=== PATIENT | female | born 1975 | race Hispanic/Latino ===

== ENCOUNTER 2017-04-20 21:48 | Emergency (ER) | payer MEDICAID ==
[2017-04-20 22:07] VITALS: BP 131/85
[2017-04-20 23:01] LABS: Basophils % (Auto) 0.9 % (0.0-1.8); Hematocrit 41.7 % (30.3-42.9); Hemoglobin 13.7 gm/dl (10.1-14.3); Mean Corpuscular HGB Conc 33 % (30-34); Mean Corpuscular Hemoglobin 30 pg (28-32); Mean Corpuscular Volume 90 fl (79-97); Platelet Count 264 K/mm3 (140-440); Red Blood Count 4.64 M/mm3 (3.65-5.03); Red Cell Distribution Width 13.2 % (13.2-15.2); White Blood Count 11.3 K/mm3 (4.5-11.0)
[2017-04-20 23:12] LABS: INR 1.04 (0.87-1.13)
[2017-04-20 23:13] LABS: Anion Gap 22 mmol/L; Blood Urea Nitrogen 26 mg/dL (7-17); Calcium 9.4 mg/dL (8.4-10.2); Carbon Dioxide 25 mmol/L (22-30); Glucose 183 mg/dL (65-100); Partial Thromboplastin Time 27.1 Sec. (24.2-36.6); Potassium 3.6 mmol/L (3.6-5.0); Sodium 137 mmol/L (137-145)
== END 2017-04-21 00:55 | disposition left against medical advice (07) ==
LOC: ED 21:48
DX: R07.89 Other chest pain (principal); R11.2 Nausea with vomiting, unspecified; E11.9 Type 2 diabetes mellitus without complications; G89.29 Other chronic pain; F17.200 Nicotine dependence, unspecified, uncomplicated; Z91.040 Latex allergy status; Z53.21 Procedure and treatment not carried out due to patient leaving prior to being seen by health care provider
CPT/HCPCS: 36415; 80048; 84484; 84703; 85025; 85610; 85730; 93005; 93010